=== PATIENT | male | born 1985 | race Caucasian/White ===

== ENCOUNTER 2019-11-29 15:44 | Inpatient (IN) | payer OTHER ==
--- NOTE | 2019-11-29 15:57 | BHS.RME ---
Substance Use & Tx History - Substance Use History Alcohol Substance amount: 2 pints of rum Frequency of use: Daily Substance route: Oral Date of Last Use: 11/29/19 (3am) Benzodiazepines Substance amount: ativan 1 mg - 4tabs Frequency of use: Daily Substance route: Oral Date of Last Use: 11/29/19 Nicotine Substance amount: 1/2 packl Date of Last Use: 11/29/19 Physical/Psych/Mental Status - Behavior General Behavior: Increased activity (restlessness, agitation) Eye Contact: Normal - Cooperativeness Cooperativeness: Cooperative - Thinking Thought Processes: Tight, Logical, Goal Directed - Physical Health Problems Is patient presently having any pain?: No Does patient presently have any injuries (include location): No Does patient currently have a fever: No Is patient : No CIWA Nausea/Vomitin Muscle Tremors: 4-Moderate,w/Arms Extend Anxiety: 4-Mod. Anxious/Guarded Agitation: 4-Moderately Restless Paroxysmal Sweats: 5 Orientation: 1-Uncertain about Date Tacttile Disturbances: 0-None Auditory Disturbances: 0-None Visual Disturbances: 1-Very Mild Sensitivity Headache: 5-Severe CIWA-Ar Total Score: 27
[2019-11-29 17:11] VITALS: BMI 25.7
--- NOTE | 2019-11-29 17:36 | HP ---
CIWA Score Nausea/Vomitin Muscle Tremors: 4-Moderate,w/Arms Extend Anxiety: 4-Mod. Anxious/Guarded Agitation: 4-Moderately Restless Paroxysmal Sweats: 5 Orientation: 1-Uncertain about Date Tacttile Disturbances: 0-None Auditory Disturbances: 0-None Visual Disturbances: 1-Very Mild Sensitivity Headache: 5-Severe CIWA-Ar Total Score: 27 - Admission Criteria [facility]AS[facility] Guidelines: Admission for Medically Managed Detox: Requires at least one of the followin. CIWA greater than 12 2. Seizures within the past 24 hours 3. Delirium tremens within the past 24 hours 4. Hallucinations within the past 24 hours 5. Acute intervention needed for co occurring medical disorder 6. Acute intervention needed for co occurring psychiatric disorder 7. Severe withdrawal that cannot be handled at a lower level of care (continued vomiting, continued diarrhea, abnormal vital signs) requiring intravenous medication and/or fluids 8. Admission ROS [facility] Chief Complaint: alcohol detox Allergies/Adverse Reactions: Allergies Allergy/AdvReac Type Severity Reaction Status Date / Time No Known Allergies Allergy Verified 11/29/19 17:44 History of Present Illness: Patient is a 33 y/o male with no past medical history who presents for alcohol detox. Patient started drinking at age 19. Patient drinks every day. Patient drinks 2 pints a day, used to be 1 pint but has recently increase. Reports having a seizure in the past, couple years again. Positive for eye auto bumper straightener and blackout. Patient was sober for one year 3 and a half years ago. has done rehab in the past. Last drink was 3 am. Patient also reports using ativan, started a at age 32. Prescribed 4 mg of ativan a day but has been taking more then 4 mg. Patient takes 24 mg of suboxone every day, took half a pill before being spoken to by provider. Patient is prescribed suboxone. Patient also recently stopped taking adderal. Patient smokes half pack of cigarettes a day. - Substance Use History Alcohol Substance amount: 2 pints of rum Frequency of use: Daily Substance route: Oral Date of Last Use: 11/29/19 (3am) Benzodiazepines Substance amount: ativan 1 mg - 4tabs Frequency of use: Daily Substance route: Oral Date of Last Use: 11/29/19 Nicotine Substance amount: 1/2 packl Date of Last Use: 11/29/19 SGHX: none social: unemployed, homeless Patient is admitted for detox from alcohol, high CIWA and poor social support. - Review of Systems Constitutional: Other (denies chills, fever) EENT: reports: Blurred Vision. denies: Double Vision Respiratory: denies: Cough, Shortness of Breath, Wheezing Cardiac: denies: Chest Pain GI: reports: Nausea, Vomiting : denies: Dysuria Musculoskeletal: reports: Muscle Pain Integumentary: reports: Sweating Neuro: reports: Headache, Dizziness Endocrine: denies: Flushing Hematology: denies: Anemia Psychiatric: reports: Anxious, Depressed Patient History - Patient Medical History Hx Anemia: No Hx Asthma: No Hx Chronic Obstructive Pulmonary Disease (COPD): No Hx Cancer: No Hx Cardiac Disorders: No Hx Congestive Heart Failure: No Hx Hypertension: No Hx Hypercholesterolemia: No Hx Pacemaker: No HX Cerebrovascular Accident: No Hx Seizures: No Hx Dementia: No Hx Diabetes: No Hx Gastrointestinal Disorders: No Hx Liver Disease: No Hx Genitourinary Disorders: No Hx Sexually Transmitted Disorders: No Hx Renal Disease (ESRD): No Hx Thyroid Disease: No Hx Human Immunodeficiency Virus (HIV): No Hx Hepatitis C: No Hx Depression: No Hx Suicide Attempt: No Hx Bipolar Disorder: No Hx Schizophrenia: No - Patient Surgical History Past Surgical History: No Hx Neurologic Surgery: No Hx Cataract Extraction: No Hx Cardiac Surgery: No Hx Lung Surgery: No Hx Breast Surgery: No Hx Breast Biopsy: No Hx Abdominal Surgery: No Hx Appendectomy: No Hx Cholecystectomy: No Hx Genitourinary Surgery: No Hx Section: No Hx Orthopedic Surgery: No Hx Hysterectomy: No Anesthesia Reaction: No - PPD History Previous Implant?: Yes Documented Results: Negative w/o proof - Smoking Cessation Smoking history: Current every day smoker Aproximately how many cigarettes per day: 12 Initiated information on smoking cessation: No - Substance & Tx. History Hx Alcohol Use: Yes Hx Substance Use: Yes (ativan) Admission Physical Exam BHS - Vital Signs Vital Signs: Vital Signs - 24 hr 11/29/19 17:10 Temperature 97.6 F Pulse Rate 75 Respiratory 19 Rate Blood Pressure 160/133 H - Physical General Appearance: Yes: Within Normal Limits HEENTM: Yes: EOMI Respiratory: Yes: Normal Breath Sounds, No Respiratory Distress, No Accessory Muscle Use Cardiology: Yes: Regular Rhythm, Regular Rate, S1, S2 Abdominal: Yes: Non Tender, Flat, Soft Back: Yes: Normal Inspection Musculoskeletal: Yes: Within Normal Limits, full range of Motion Extremities: Yes: Within Normal Limits. No: Pedal Edema Neurological: Yes: Fully Oriented, Alert, Normal Response Integumentary: Yes: Normal Color, Dry - Diagnostic (1) Alcohol withdrawal Current Visit: Yes Status: Acute (2) Alcohol dependence Current Visit: Yes Status: Acute (3) Benzodiazepine abuse Current Visit: Yes Status: Acute (4) Nicotine addiction Current Visit: Yes Status: Acute Cleared for Admission S - Detox or Rehab [facility] Level of Care: Medically Managed Detox Regimen/Protocol: Librium Breathalyzer - Breathalyzer Breathalyzer: 0 Vital Signs - Vital Signs Vital signs refused: No Temperature: 97.6 F Temperature source: Oral Pulse Rate: 75 Respiratory Rate: 19 Blood Pressure: 160/133 - Height Height: 6 ft - Weight Weight: 86.183 kg - BMI Body Mass Index (BMI): 25.7 Urine Drug Screen - Test Device Lot number: [id number] Expiration date: 10/24/21 - Control Is test valid?: Yes - Results Drug screen NEGATIVE: No Urine drug screen results: BUP-Suboxone Inpatient Rehab Admission - Rehab Decision to Admit Inpatient rehab admission?: No
[2019-11-29] MEDS ORDERED: ONDANSETRON *ODT* 4 MG TABLET SL PRN (17:47)
[2019-11-29] MEDS ORDERED: METHOCARBAMOL 500 MG TABLET PO PRN (17:47)
[2019-11-29] MEDS ORDERED: MAGNESIUM CITRATE 300 ML BOTTLE PO PRN (17:47)
[2019-11-29] MEDS ORDERED: IBUPROFEN 400 MG TABLET (FP) PO PRN (17:47)
[2019-11-29] MEDS ORDERED: ACETAMINOPHEN 325 MG TABLET (FP) PO PRN ×2 (17:47)
[2019-11-29] MEDS ORDERED: BISMUTH SUBSALICYLATE 524 MG/30 ML UD PO PRN (17:47)
[2019-11-29] MEDS ORDERED: MAG HYDROX/AL HYDROX/SIMETH 30 ML UNIT-DOSE CUP PO PRN (17:47)
[2019-11-29] MEDS ORDERED: MENTHOL/PHENOL 1 EACH UD MM PRN (17:47)
[2019-11-29] MEDS: hydrOXYzine PAMOATE 25 MG CAPSULE (FP) PO SCH ×2 (19:35→22:41)
[2019-11-29] MEDS: chlordiazePOXIDE HCL 25 MG CAPSULE PO PRN (19:35)
[2019-11-29] MEDS: NICOTINE 14 MG/24 HOURS TOPICAL PATCH TD SCH (19:38)
[2019-11-29] MEDS: PRENATAL VITAMINS W/ FOLIC ACID TABLET (FP) PO SCH (19:54)
[2019-11-29] MEDS: NICOTINE POLACRILEX 2 MG GUM BUC PRN ×2 (19:54→22:36)
[2019-11-29] MEDS: chlordiazePOXIDE HCL 25 MG CAPSULE PO SCH (22:34)
[2019-11-29] MEDS: THIAMINE HCL 100 MG TABLET (FP) PO SCH (22:34)
[2019-11-29] MEDS: MELATONIN 5 MG TABLETS PO SCH (22:41)
[2019-11-30] MEDS: chlordiazePOXIDE HCL 25 MG CAPSULE PO SCH ×4 (06:23→22:33)
[2019-11-30] MEDS: hydrOXYzine PAMOATE 25 MG CAPSULE (FP) PO SCH ×5 (06:23→22:34)
--- NOTE | 2019-11-30 08:46 | PN ---
Teaching Attending Note Name of Resident: Natali Tinajero ATTENDING PHYSICIAN STATEMENT I saw and evaluated the patient. I reviewed the resident's note and discussed the case with the resident. I agree with the resident's findings and plan as documented. SUBJECTIVE: OBJECTIVE: ASSESSMENT AND PLAN: Agree with resident's findings and plan for detox.
[2019-11-30] MEDS: PRENATAL VITAMINS W/ FOLIC ACID TABLET (FP) PO SCH (10:13)
[2019-11-30] MEDS: BUPRENORPHINE/NALOXONE 8 MG/2 MG FILM PACKET SL SCH (10:13)
[2019-11-30] MEDS: NICOTINE 14 MG/24 HOURS TOPICAL PATCH TD SCH (10:13)
[2019-11-30] MEDS: NICOTINE POLACRILEX 2 MG GUM BUC PRN ×3 (10:17→16:50)
[2019-11-30 10:34] LABS: HEMATOCRIT 40.6 % (35.4-49); HEMOGLOBIN 13.6 GM/dL (11.7-16.9); MCH 29.4 pg (25.7-33.7); MCHC 33.4 g/dl (32.0-35.9); MEAN PLT VOLUME 8.8 fl (7.5-11.1); PLATELET COUNT 170 K/MM3 (134-434); RBC 4.61 M/mm3 (4.00-5.60); RDW 13.8 % (11.9-15.9); WHITE BLOOD COUNT 4.9 K/mm3 (4.0-10.0)
[2019-11-30 10:36] LABS: ALBUMIN 3.4 g/dl (3.4-5.0); BILIRUBIN,TOTAL 0.2 mg/dL (0.2-1); BLOOD UREA NITROGEN 16.6 mg/dL (7-18); CALCIUM 8.3 mg/dL (8.5-10.1); CREATININE 0.7 mg/dL (0.55-1.3); POTASSIUM 3.9 mmol/L (3.5-5.1); TOT PROT 5.8 g/dl (6.4-8.2)
--- NOTE | 2019-11-30 10:39 | CONSULT ---
[facility] Psychiatric Consult - Data Date of interview: 11/30/19 Admission source: [facility] Identifying data: Patient is a 33 year old single male, without children, unemployed, domiciled, and is not supported with financial assistance. Patient admitted to for alcohol dependence. Substance Abuse History: HIstory of benzodiazpine dependence. Medical History: denies. Psychiatric History: Patient reports a history of two psychiatric hospitalizations ([facility]) most recently at [facility] due to depression. Mr. Palacios reports a diagnosis of Bioplar disorder, Manic depressive. States that he is currently provided with outpatient psychiatric care by Dr. Sands at a clinic in [place] and is prescribed Ativan+ Adderall + Wellbutrin 150mg daily + Thorazine 25mg BID (morning + afternoon) + 100mg HS. 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 No reported history of suicide attempt. At present patient reports feeling sad. Physical/Sexual Abuse/Trauma History: denies. Mental Status Exam - Mental Status Exam Alert and Oriented to: Time, Place, Person Cognitive Function: Good Patient Appearance: Well Groomed Mood: Withdrawn Affect: Mood Congruent Patient Behavior: Fatigued Speech Pattern: Appropriate Voice Loudness: Mildly Soft/Quiet Thought Process: Goal Oriented Thought Disorder: Not Present Hallucinations: Denies Suicidal Ideation: Denies Homicidal Ideation: Denies Insight/Judgement: Poor Sleep: Poorly Appetite: Fair Muscle strength/Tone: Normal Gait/Station: Normal Psychiatric Findings - Problem List ([place] 1, 2,3) (1) Substance induced mood disorder Current Visit: Yes Status: Acute (2) Alcohol dependence Current Visit: Yes Status: Acute (3) Alcohol withdrawal Current Visit: Yes Status: Acute (4) Benzodiazepine abuse Current Visit: Yes Status: Acute (5) Nicotine addiction Current Visit: Yes Status: Acute - Initial Treatment Plan Initial Treatment Plan: Psychoeducation provided. Detoxification in progress. Will order Wellbutrin 150mg daily + Thorazine 50mg HS. Benefits and side effects discussed. Verbal consent given.
--- NOTE | 2019-11-30 11:03 | PN ---
S CIWA - CIWA Score Nausea/Vomitin-No Nausea/No Vomiting Muscle Tremors: 3 Anxiety: 3 Agitation: 3 Paroxysmal Sweats: 3 Orientation: 0-Oriented Tacttile Disturbances: 0-None Auditory Disturbances: 0-None Visual Disturbances: 0-None Headache: 0-None Present CIWA-Ar Total Score: 12 BHS Progress Note (SOAP) Subjective: sweats shakes interrupted sleep agitation restless Objective: 11/30/19 11:02 Vital Signs Temperature 97.7 F 11/30/19 09:05 Pulse Rate 56 L 11/30/19 09:05 Respiratory Rate 18 11/30/19 09:05 Blood Pressure 111/54 L 11/30/19 09:05 O2 Sat by Pulse Oximetry (%) 96 11/30/19 09:05 Laboratory Tests 11/30/19 11/30/19 07:50 07:50 WBC 4.9 RBC 4.61 Hgb 13.6 Hct 40.6 MCV 88.0 MCH 29.4 MCHC 33.4 RDW 13.8 Plt Count 170 MPV 8.8 Sodium 141 Potassium 3.9 Chloride 105 Carbon Dioxide 32 Anion Gap 4 L BUN 16.6 Creatinine 0.7 Est GFR (CKD-EPI)AfAm 145.74 Est GFR (CKD-EPI)NonAf 125.75 Random Glucose 94 Calcium 8.3 L Total Bilirubin 0.2 AST 11 L ALT 18 Alkaline Phosphatase 49 Total Protein 5.8 L Albumin 3.4 labs noted aaox3 ambulating no acute distress Assessment: 11/30/19 11:02 withdrawals Plan: continue detox increase fluids
--- NOTE | 2019-11-30 13:32 | EKG ---
Test Reason : Blood Pressure : / mmHG Vent. Rate : 058 BPM Atrial Rate : 058 BPM P-R Int : 158 ms QRS Dur : 092 ms QT Int : 428 ms P-R-T Axes : 046 074 056 degrees QTc Int : 420 ms SINUS BRADYCARDIA OTHERWISE NORMAL ECG Confirmed by MD RADAMES, BEATRICE ([id number]) on 11/30/2019 1:32:21 PM Referred By: Confirmed By:BEATRICE CRUM MD
[2019-11-30] MEDS: chlordiazePOXIDE HCL 25 MG CAPSULE PO PRN (14:13)
[2019-11-30] MEDS: MELATONIN 5 MG TABLETS PO SCH (22:32)
[2019-11-30] MEDS: chlorproMAZINE HCL 25 MG TABLET PO SCH (22:33)
[2019-11-30] MEDS: THIAMINE HCL 100 MG TABLET (FP) PO SCH (22:34)
[2019-12-01] MEDS: hydrOXYzine PAMOATE 25 MG CAPSULE (FP) PO SCH ×5 (05:42→22:17)
[2019-12-01] MEDS: chlordiazePOXIDE HCL 25 MG CAPSULE PO SCH ×4 (05:42→22:16)
[2019-12-01] MEDS: PRENATAL VITAMINS W/ FOLIC ACID TABLET (FP) PO SCH (10:19)
[2019-12-01] MEDS: NICOTINE POLACRILEX 2 MG GUM BUC PRN (10:20)
[2019-12-01] MEDS: BUPRENORPHINE/NALOXONE 8 MG/2 MG FILM PACKET SL SCH (10:21)
[2019-12-01] MEDS: NICOTINE 14 MG/24 HOURS TOPICAL PATCH TD SCH (10:27)
[2019-12-01] MEDS ORDERED: chlordiazePOXIDE HCL 25 MG CAPSULE PO ONE (10:45)
--- NOTE | 2019-12-01 12:33 | PN ---
S CIWA - CIWA Score Nausea/Vomitin-No Nausea/No Vomiting Muscle Tremors: 3 Anxiety: 2 Agitation: 2 Paroxysmal Sweats: 3 Orientation: 0-Oriented Tacttile Disturbances: 0-None Auditory Disturbances: 0-None Visual Disturbances: 0-None Headache: 0-None Present CIWA-Ar Total Score: 10 BHS Progress Note (SOAP) Subjective: sweats shakes interrupted sleep body aches anxiety restless Objective: 12/01/19 12:30 Vital Signs Temperature 97.3 F L 12/01/19 09:40 Pulse Rate 73 12/01/19 09:40 Respiratory Rate 16 12/01/19 09:40 Blood Pressure 118/56 L 12/01/19 09:40 O2 Sat by Pulse Oximetry (%) 96 12/01/19 09:40 Laboratory Tests 11/29/19 11/30/19 11/30/19 19:00 07:50 07:50 WBC 4.9 RBC 4.61 Hgb 13.6 Hct 40.6 MCV 88.0 MCH 29.4 MCHC 33.4 RDW 13.8 Plt Count 170 MPV 8.8 Sodium Potassium Chloride Carbon Dioxide Anion Gap BUN Creatinine Est GFR (CKD-EPI)AfAm Est GFR (CKD-EPI)NonAf Random Glucose Calcium Total Bilirubin AST ALT Alkaline Phosphatase Total Protein Albumin Syphilis Serology Non-reactive COVID-19 (ISAAC) Not detected 11/30/19 07:50 WBC RBC Hgb Hct MCV MCH MCHC RDW Plt Count MPV Sodium 141 Potassium 3.9 Chloride 105 Carbon Dioxide 32 Anion Gap 4 L BUN 16.6 Creatinine 0.7 Est GFR (CKD-EPI)AfAm 145.74 Est GFR (CKD-EPI)NonAf 125.75 Random Glucose 94 Calcium 8.3 L Total Bilirubin 0.2 AST 11 L ALT 18 Alkaline Phosphatase 49 Total Protein 5.8 L Albumin 3.4 Syphilis Serology COVID-19 (ISAAC) aaox3 ambulating no acute distress Assessment: 12/01/19 12:31 withdrawal sx librium 25mg x one dose ordered Plan: continue detox
[2019-12-01] MEDS: chlordiazePOXIDE HCL 25 MG CAPSULE PO PRN (13:29)
[2019-12-01] MEDS: chlorproMAZINE HCL 25 MG TABLET PO SCH (22:15)
[2019-12-01] MEDS: MELATONIN 5 MG TABLETS PO SCH (22:17)
[2019-12-01] MEDS: THIAMINE HCL 100 MG TABLET (FP) PO SCH (22:17)
[2019-12-02] MEDS ORDERED: chlordiazePOXIDE HCL 10 MG CAPSULE PO PRN
[2019-12-02] MEDS: hydrOXYzine PAMOATE 25 MG CAPSULE (FP) PO SCH ×5 (05:30→21:32)
[2019-12-02] MEDS: chlordiazePOXIDE HCL 10 MG CAPSULE PO SCH ×4 (05:30→22:47)
[2019-12-02] MEDS: MAGNESIUM HYDROX 2400MG/30ML ORAL SUSPENSION 30 ML CUP PO PRN (05:32)
--- NOTE | 2019-12-02 09:43 | PN ---
S CIWA - CIWA Score Nausea/Vomitin-No Nausea/No Vomiting Muscle Tremors: 2 Anxiety: 2 Agitation: 2 Paroxysmal Sweats: 2 Orientation: 0-Oriented Tacttile Disturbances: 0-None Auditory Disturbances: 0-None Visual Disturbances: 0-None Headache: 0-None Present CIWA-Ar Total Score: 8 BHS Progress Note (SOAP) Subjective: sweats interrupted sleep restless Objective: 12/02/19 12:02 Vital Signs Temperature 97.4 F L 12/02/19 09:11 Pulse Rate 78 12/02/19 09:11 Respiratory Rate 18 12/02/19 09:11 Blood Pressure 125/67 12/02/19 09:11 O2 Sat by Pulse Oximetry (%) 97 12/02/19 09:11 Laboratory Tests 11/29/19 11/30/19 11/30/19 19:00 07:50 07:50 WBC 4.9 RBC 4.61 Hgb 13.6 Hct 40.6 MCV 88.0 MCH 29.4 MCHC 33.4 RDW 13.8 Plt Count 170 MPV 8.8 Sodium Potassium Chloride Carbon Dioxide Anion Gap BUN Creatinine Est GFR (CKD-EPI)AfAm Est GFR (CKD-EPI)NonAf Random Glucose Calcium Total Bilirubin AST ALT Alkaline Phosphatase Total Protein Albumin Syphilis Serology Non-reactive COVID-19 (ISAAC) Not detected 11/30/19 07:50 WBC RBC Hgb Hct MCV MCH MCHC RDW Plt Count MPV Sodium 141 Potassium 3.9 Chloride 105 Carbon Dioxide 32 Anion Gap 4 L BUN 16.6 Creatinine 0.7 Est GFR (CKD-EPI)AfAm 145.74 Est GFR (CKD-EPI)NonAf 125.75 Random Glucose 94 Calcium 8.3 L Total Bilirubin 0.2 AST 11 L ALT 18 Alkaline Phosphatase 49 Total Protein 5.8 L Albumin 3.4 Syphilis Serology COVID-19 (ISAAC) aaox3 ambulating no acute distress Assessment: 12/02/19 12:02 withdrawals Plan: continue detox
[2019-12-02] MEDS: NICOTINE 14 MG/24 HOURS TOPICAL PATCH TD SCH (10:47)
[2019-12-02] MEDS: PRENATAL VITAMINS W/ FOLIC ACID TABLET (FP) PO SCH (10:48)
[2019-12-02] MEDS: BUPRENORPHINE/NALOXONE 8 MG/2 MG FILM PACKET SL SCH (10:50)
[2019-12-02] MEDS: NICOTINE POLACRILEX 2 MG GUM BUC PRN (10:51)
[2019-12-02] MEDS: chlorproMAZINE HCL 25 MG TABLET PO SCH (21:31)
[2019-12-02] MEDS: MELATONIN 5 MG TABLETS PO SCH (21:32)
[2019-12-02] MEDS: THIAMINE HCL 100 MG TABLET (FP) PO SCH (21:32)
[2019-12-03] MEDS ORDERED: chlordiazePOXIDE HCL 10 MG CAPSULE PO SCH (05:00)
[2019-12-03] MEDS: hydrOXYzine PAMOATE 25 MG CAPSULE (FP) PO SCH ×5 (05:23→22:01)
[2019-12-03] MEDS: BUPRENORPHINE/NALOXONE 8 MG/2 MG FILM PACKET SL SCH (10:49)
[2019-12-03] MEDS: PRENATAL VITAMINS W/ FOLIC ACID TABLET (FP) PO SCH (10:50)
[2019-12-03] MEDS: NICOTINE 14 MG/24 HOURS TOPICAL PATCH TD SCH (10:50)
[2019-12-03] MEDS ORDERED: chlordiazePOXIDE HCL 10 MG CAPSULE PO ONE ×2 (14:00→22:00)
--- NOTE | 2019-12-03 17:25 | PN ---
[facility] CIWA - CIWA Score Nausea/Vomitin-No Nausea/No Vomiting Muscle Tremors: 2 Anxiety: 4-Mod. Anxious/Guarded Agitation: 3 Paroxysmal Sweats: 2 Orientation: 0-Oriented Tacttile Disturbances: 0-None Auditory Disturbances: 0-None Visual Disturbances: 0-None Headache: 0-None Present CIWA-Ar Total Score: 11 S Progress Note (SOAP) Subjective: Sweating, Tremors, Anxious, Restless. Objective: Patient A & O X 3, Observed Ambulating on Detox Unit Unassisted. In No Acute Distress. 12/03/19 17:23 Vital Signs Temperature 97.5 F L 12/03/19 12:28 Pulse Rate 75 12/03/19 12:28 Respiratory Rate 20 12/03/19 12:28 Blood Pressure 107/51 L 12/03/19 12:28 O2 Sat by Pulse Oximetry (%) 95 12/03/19 12:28 Laboratory Tests 11/29/19 11/30/19 11/30/19 19:00 07:50 07:50 WBC 4.9 RBC 4.61 Hgb 13.6 Hct 40.6 MCV 88.0 MCH 29.4 MCHC 33.4 RDW 13.8 Plt Count 170 MPV 8.8 Sodium Potassium Chloride Carbon Dioxide Anion Gap BUN Creatinine Est GFR (CKD-EPI)AfAm Est GFR (CKD-EPI)NonAf Random Glucose Calcium Total Bilirubin AST ALT Alkaline Phosphatase Total Protein Albumin Syphilis Serology Non-reactive COVID-19 (ISAAC) Not detected 11/30/19 07:50 WBC RBC Hgb Hct MCV MCH MCHC RDW Plt Count MPV Sodium 141 Potassium 3.9 Chloride 105 Carbon Dioxide 32 Anion Gap 4 L BUN 16.6 Creatinine 0.7 Est GFR (CKD-EPI)AfAm 145.74 Est GFR (CKD-EPI)NonAf 125.75 Random Glucose 94 Calcium 8.3 L Total Bilirubin 0.2 AST 11 L ALT 18 Alkaline Phosphatase 49 Total Protein 5.8 L Albumin 3.4 Syphilis Serology COVID-19 (ISAAC) Lab Results noted. Assessment: 12/03/19 17:24 WITHDRAWAL SYMPTOMS. Plan: Continue Detox. Increase Daily Oral Water Intake. Patient scheduled for D/C from detox unit tomorrow pending pre-discharge medical evaluation by covering medical provider.
[2019-12-03] MEDS: NICOTINE POLACRILEX 2 MG GUM BUC PRN (19:45)
[2019-12-03] MEDS: MAGNESIUM HYDROX 2400MG/30ML ORAL SUSPENSION 30 ML CUP PO PRN (19:45)
[2019-12-03] MEDS: chlorproMAZINE HCL 25 MG TABLET PO SCH (22:00)
[2019-12-03] MEDS: THIAMINE HCL 100 MG TABLET (FP) PO SCH (22:00)
[2019-12-03] MEDS: MELATONIN 5 MG TABLETS PO SCH (22:04)
[2019-12-04] MEDS ORDERED: chlordiazePOXIDE HCL 10 MG CAPSULE PO ONE (05:00)
[2019-12-04] MEDS: hydrOXYzine PAMOATE 25 MG CAPSULE (FP) PO SCH ×2 (05:05→09:00)
[2019-12-04 07:20] VITALS: BP 131/70; PULSE 75; TEMP 97.1
[2019-12-04] MEDS: NICOTINE 14 MG/24 HOURS TOPICAL PATCH TD SCH (09:00)
[2019-12-04] MEDS: PRENATAL VITAMINS W/ FOLIC ACID TABLET (FP) PO SCH (09:00)
[2019-12-04] MEDS: BUPRENORPHINE/NALOXONE 8 MG/2 MG FILM PACKET SL SCH (09:00)
--- NOTE | 2019-12-04 16:41 | DS ---
[facility] Detox Discharge Summary Admission Date: 11/29/19 Discharge Date: 12/04/19 - History Present History: Alcohol Dependence, Sedative Dependence Additional Comments: Pt completed detox and discharged safely in stable condition Pertinent Past History: Nicotine dependence - Physical Exam Results Vital Signs: Vital Signs Temperature 97.1 F L 12/04/19 05:02 Pulse Rate 75 12/04/19 05:02 Respiratory Rate 18 12/04/19 05:02 Blood Pressure 131/70 12/04/19 05:02 O2 Sat by Pulse Oximetry (%) 94 L 12/04/19 05:02 Pertinent Admission Physical Exam Findings: Withdrawal sxs Laboratory Tests 11/29/19 11/30/19 11/30/19 19:00 07:50 07:50 WBC 4.9 RBC 4.61 Hgb 13.6 Hct 40.6 MCV 88.0 MCH 29.4 MCHC 33.4 RDW 13.8 Plt Count 170 MPV 8.8 Sodium Potassium Chloride Carbon Dioxide Anion Gap BUN Creatinine Est GFR (CKD-EPI)AfAm Est GFR (CKD-EPI)NonAf Random Glucose Calcium Total Bilirubin AST ALT Alkaline Phosphatase Total Protein Albumin Syphilis Serology Non-reactive COVID-19 (ISAAC) Not detected 11/30/19 07:50 WBC RBC Hgb Hct MCV MCH MCHC RDW Plt Count MPV Sodium 141 Potassium 3.9 Chloride 105 Carbon Dioxide 32 Anion Gap 4 L BUN 16.6 Creatinine 0.7 Est GFR (CKD-EPI)AfAm 145.74 Est GFR (CKD-EPI)NonAf 125.75 Random Glucose 94 Calcium 8.3 L Total Bilirubin 0.2 AST 11 L ALT 18 Alkaline Phosphatase 49 Total Protein 5.8 L Albumin 3.4 Syphilis Serology COVID-19 (ISAAC) Labs reviewed - Treatment Hospital Course: Detox Protocol Followed, Detoxed Safely, Responded well, Discharged Condition Good - Medication Discharge Medications: Ambulatory Orders Buprenorphine HCl/Naloxone HCl [Suboxone 8 mg-2 mg Sl Tablets] 3 each PO DAILY 11/29/19 Bupropion HCl [Wellbutrin -] 150 mg PO DAILY 11/29/19 Lorazepam [Ativan] 2 mg PO BID 11/29/19 - Diagnosis (1) Alcohol dependence with uncomplicated withdrawal Status: Acute (2) Benzodiazepine abuse Status: Acute (3) Nicotine addiction Status: Chronic - AMA Did Patient Leave Against Medical Advice: No (Follow up with PCP within 1-2 weeks)
== END 2019-12-04 08:56 | disposition home or self-care (01) | DRG 773 ==
LOC: YASAS 15:44 → Y6N 18:47
PROVIDERS: ADMIT Allergy & Immunology; ATTEND Allergy & Immunology
PROC: HZ2ZZZZ Detoxification Services for Substance Abuse Treatment (ICD-10-PCS; principal; 2019-11-29)
DX: F10.230 Alcohol dependence with withdrawal, uncomplicated (principal); F13.20 Sedative, hypnotic or anxiolytic dependence, uncomplicated; F11.20 Opioid dependence, uncomplicated; F17.210 Nicotine dependence, cigarettes, uncomplicated; F19.24 Other psychoactive substance dependence with psychoactive substance-induced mood disorder; F31.9 Bipolar disorder, unspecified; Z56.0 Unemployment, unspecified; Z59.0 Homelessness
CPT/HCPCS: 36415; 80053; 85027; 86780; 93005; 93010; U0003